=== PATIENT | female | born 1945 | race Caucasian/White ===

== ENCOUNTER 2023-06-24 11:37 | Outpatient (AMB) | payer MEDICARE, OTHER, SELFPAY ==
--- NOTE | 2023-06-24 11:36 | HO.NEPHOV ---
HPI HPI Comments History of Present Illness Details 78-year-old woman with a history of longstanding hypertension and superimposed white coat effect was found to have microalbuminuria She has mild left-sided hydronephrosis. Evaluated by Urology and no further intervention has been planned. Repeat imaging is being planned in 12 months. She was treated with lisinopril several months ago. She developed angioedema and therefore this has been switched to amlodipine 10 mg. She monitors blood pressure at home home blood pressures are excellent. Office readings have always been elevated and has been attributed to with good effect. [facility] Medical History (Updated 06/24/23 @ 12:00 by Dennis Hernandez MD) HTN (hypertension) Family History (Updated 06/24/23 @ 11:41 by Nabila Shepherd MA) Mother Heart attack Diabetes Father Lung cancer Social History (Updated 06/24/23 @ 11:36 by Nabila Shepherd MA) Alcohol intake: never Patient Tobacco Use Status: Never used Tobacco Vital Signs 06/24/23 11:38 Height 5 ft 4.5 in Weight 146 lb 6 oz BMI 24.7 BP 162/92 H Blood Pressure Location Lt brachial Position Sitting Pulse 107 H Pulse Source Pulse Oximeter Pulse Oximetry (%) 95 Oxygen Delivery Method Room Air Physical Exam Vital Signs: Last Vital Signs Pulse 107 H 06/24/23 11:38 BP 162/92 H 06/24/23 11:38 Pulse Ox 95 06/24/23 11:38 Oxygen Delivery Method Room Air 06/24/23 11:38 BMI result Body Mass Index 24.7 Const General: comfortable Nutritional Appearance: well nourished Orientation/consciousness: patient oriented x3 HEENT Head: No normal to inspection Mouth: moist mucous membranes Neck Neck: Yes supple and Yes no JVD Resp Auscultation: clear to auscultation bilaterally, no rales and rub present Cardio Jugular venous distension: no JVD Palpation: no palpable S3 and no palpable S4 Heart sounds: no rubs GI Palpation (GI): Soft to palpation and nontender Percussion: No Fluid wave present General: Yes no CVA tenderness Back/Spine/Pelvis Back: no CVA tenderness Skin General skin exam: no rashes or lesions noted Neuro General: patient oriented x3 Extrem General: Yes no pedal edema and No clubbing Assessment & Plan Assessment & Plan (1) CKD (chronic kidney disease) stage 3, GFR 30-59 ml/min: Code(s): N18.30 - Chronic kidney disease, stage 3 unspecified (2) Microalbuminuria: Code(s): R80.9 - Proteinuria, unspecified (3) HTN (hypertension): Code(s): I10 - Essential (primary) hypertension Plan Mild CKD with EGFR of about 48 mL/minute. Most likely due to age-related loss of nephron as well as longstanding hypertension. Overall serum creatinine has been stable for the last 12 months at 1.0. Goal is to slow the progression of renal disease. Continue with current treatment plan including amlodipine. Increase it to stand low-sodium diet and increase fluid intake. Continue to avoid nephrotoxic agents including NSAIDs. Mild left-sided hydronephrosis. Follow-up with Urology. Microalbuminuria most likely related to underlying hypertensive kidney disease. She has a history of angioedema with ARLETH inhibitors therefore we will avoid using ARLETH inhibitors or ARB is. The primary goal is to keep the blood pressure under good control. We will continue the amlodipine for now. If the blood pressure is suboptimal I will consider adding spironolactone 12.5 mg daily for both RAAS inhibition as well as optimizing blood pressure. Created to continue monitoring of blood pressure at home. Orders: Orders Blood Urea Nitrogen 4 Months I10 - Essential (primary) hypertension, R80.9 - Proteinuria, unspecified Calcium 4 Months I10 - Essential (primary) hypertension, R80.9 - Proteinuria, unspecified UA and rflx microscopic 4 Months I10 - Essential (primary) hypertension, R80.9 - Proteinuria, unspecified Electrolytes 4 Months I10 - Essential (primary) hypertension, R80.9 - Proteinuria, unspecified Creatinine 4 Months I10 - Essential (primary) hypertension, R80.9 - Proteinuria, unspecified Coding Level of Care Code New Pt Level 4 ([id number]) Diagnoses CKD (chronic kidney disease) stage 3, GFR 30-59 ml/min N18.30 Microalbuminuria R80.9 HTN (hypertension) I10 Results Reviewed Results Reviewed: Urine microalbumin creatinine ratio of 115.4 Serum creatinine 1.0 and been stable for the last 12 months. Nephrology Results: No Data to Display
[2023-06-24 11:38] VITALS: BP 162/92; PULSE 107; O2SAT 95; BMI 24.7
== END 2023-06-24 12:04 | disposition home or self-care (01) ==
PROVIDERS: PCP Family Medicine; Visit Provider Internal Medicine Hypertension Specialist
DX: N18.30 Chronic kidney disease, stage 3 unspecified (principal); R80.9 Proteinuria, unspecified; I10 Essential (primary) hypertension
CPT/HCPCS: 99204

== ENCOUNTER → 2023-06-24 11:37 | Outpatient (BNVA) | payer MEDICARE, OTHER, SELFPAY | PROVIDERS: PCP Family Medicine; Visit Provider Internal Medicine Hypertension Specialist | DX: I12.9 Hypertensive chronic kidney disease with stage 1 through stage 4 chronic kidney disease, or unspecified chronic kidney disease (principal); N18.30 Chronic kidney disease, stage 3 unspecified; R80.9 Proteinuria, unspecified | CPT/HCPCS: 99202 ==